=== PATIENT | male | born 1930 | race Caucasian/White ===

== ENCOUNTER 2016-06-11 10:11 | Observation (INO) | payer OTHER ==
[~2016-06-11] VITALS: Ht 185.4 cm; Wt 68.9 kg
[2016-06-11 10:11] VITALS: BP_SYST 156
[2016-06-11] MEDS ORDERED: ASPIRIN 81 MG TAB.CHEW PO ONE (10:15)
[2016-06-11 10:47] LABS: ANION GAP 5 (5-15); CALCIUM 8.6 mg/dL (8.4-11.0); CHLORIDE 103 mmol/L (98-107); CREATININE 1.14 mg/dL (0.55-1.30); GLUCOSE 143 mg/dL (70-99); POTASSIUM 4.3 mmol/L (3.5-5.1); SODIUM SERUM 135 mmol/L (136-145); UREA NITROGEN, BLOOD 14 mg/dL (8-21)
[2016-06-11 10:48] LABS: BASOPHILS % (AUTO) 1.1 % (0.0-2.0); EOSINOPHILS # (AUTO) 0.1 K/uL (0.0-0.4); EOSINOPHILS % (AUTO) 3.6 % (0.0-4.0); HEMOGLOBIN 13.8 g/dL (14.0-18.0); LYMPHOCYTES % (AUTO) 27.7 % (20.5-51.5); MEAN CORPUSCULAR HEMOGLOBIN 31 pg (27-31); MEAN CORPUSCULAR HGB CONC 35 % (32-36); MEAN CORPUSCULAR VOLUME 90 fL (79.0-98.0); MONOCYTES # (AUTO) 0.3 K/uL (0.0-1.0); MONOCYTES % (AUTO) 8.3 % (1.7-9.3); NEUTROPHILS # (AUTO) 2.4 K/uL (1.8-7.7); NEUTROPHILS % (AUTO) 59.3 % (40.0-70.0); PLATELET COUNT (AUTO) 137 K/uL (130-430); RED BLOOD CELL COUNT(AUTO) 4.46 MIL/uL (4.2-6.2); RED CELL DISTRIBUTION WIDTH 13.6 % (9.0-15.0); WHITE BLOOD COUNT (AUTO) 3.8 K/uL (4.8-10.8)
[2016-06-11 10:49] LABS: PROTHROMBIN TIME 10.8 SECS (9.5-12.5)
[2016-06-11 10:52] LABS: ALANINE AMINOTRANSFERASE 20 U/L (12-78); ALBUMIN 3.6 g/dL (3.4-4.8); ASPARTATE AMINOTRANSFERASE 20 U/L (10-37); TOTAL BILIRUBIN 0.7 mg/dL (0.0-1.0); TOTAL PROTEIN, SERUM 6.7 g/dL (6.4-8.3)
[2016-06-11] MEDS ORDERED: MORPHINE 4 MG/ML INJ. SYRINGE IVP ONE (11:45)
[2016-06-11] MEDS ORDERED: MORPHINE 2 MG/ML INJ. SYRINGE IVP PRN (12:15)
[2016-06-11] MEDS ORDERED: ONDANSETRON HCL 4 MG/2 ML VIAL IVP PRN (12:15)
[2016-06-11] MEDS ORDERED: METOPROLOL TARTRATE 25 MG TABLET PO SCH (12:15)
[2016-06-11] MEDS ORDERED: ACETAMINOPHEN 325 MG TABLET PO PRN (12:15)
[2016-06-11] MEDS ORDERED: LORazepam 2 MG/ML VIAL IVP PRN (12:15)
[2016-06-11] MEDS ORDERED: PANTOPRAZOLE SODIUM 40 MG/VIAL (PROTONIX) IVP SCH (12:15)
[2016-06-11] MEDS ORDERED: NITROGLYCERIN 0.4 MG TAB.SUBL SL ONE (12:15)
[2016-06-11 12:29] VITALS: BP_SYST 188
[2016-06-11 12:45] VITALS: BP_SYST 167
[2016-06-11] MEDS ORDERED: OMEP10SU PO (13:02)
[2016-06-11] MEDS ORDERED: ESCI10TA PO (13:02)
[2016-06-11] MEDS ORDERED: PANTOPRAZOLE SODIUM 40 MG/VIAL (PROTONIX) IVP ONE (13:30)
[2016-06-11] MEDS ORDERED: METOPROLOL TARTRATE 25 MG TABLET PO ONE (13:30)
[2016-06-11 16:27] VITALS: BP_SYST 128
[2016-06-11 19:30] VITALS: BP_SYST 126
[2016-06-12] MEDS ORDERED: ASPIRIN 81 MG TAB.CHEW PO SCH (09:00)
== END 2016-06-11 20:30 | disposition home or self-care (01) ==
LOC: SED 10:11 → STU 12:01
PROVIDERS: ADMIT Internal Medicine; ATTEND Internal Medicine
DX: R07.89 Other chest pain (principal)
CPT/HCPCS: 36415; 71010; 80053; 83880; 84484; 85025; 85610; 85730; 93005; 96374; 96375; 99285; C9113; G0378; J2270